=== PATIENT | male | born 1975 | race African-American/Black ===

== ENCOUNTER 2017-03-30 09:45 | Emergency (ER) | payer MEDICAID ==
[~2017-03-30] VITALS: Ht 177.8 cm; Wt 97.0 kg
[2017-03-30 09:46] VITALS: BP 169/100; PULSE 92; RESP 24; TEMP 98.9; O2SAT 99
[2017-03-30] MEDS ORDERED: SODIUM CHLOR 0.9% 1000 ML INJ 1,000 ML IV ONE (11:48)
[2017-03-30 11:53] VITALS: O2SAT 97
[2017-03-30 11:54] VITALS: BP_SYST 140; BP_SYST 153; BP_DIAS 86; BP_DIAS 87; RESP 18
[2017-03-30] MEDS ORDERED: SODIUM CHLORIDE 0.9% FLUSH 10 ML FLUSH IVF PRN (12:00)
[2017-03-30] MEDS ORDERED: MECLIZINE HCL 25 MG TAB PO ONE (12:00)
[2017-03-30] MEDS ORDERED: ONDANSETRON HCL 4 MG/2 ML VIAL IVP ONE (12:00)
[2017-03-30 12:39] LABS: BASOPHIL # 0.1 TH/MM3 (0-0.2); BASOPHIL % 0.4 % (0.0-2.0); EOSINOPHIL % 0.2 % (0.0-4.0); HEMATOCRIT 50.4 % (39.0-51.0); HEMO FLAGS DIFF FINAL; LYMPH % 14.8 % (9.0-44.0); LYMPHOCYTE # 2.1 TH/MM3 (1.0-4.8); MEAN CORPUSCULAR HEMOGLOBIN 33.3 PG (27.0-34.0); MEAN CORPUSCULAR HGB CONC 34.4 % (32.0-36.0); MONO % 6.7 % (0.0-8.0); NEUT % 77.9 % (16.0-70.0); PLATELET COUNT 152 TH/MM3 (150-450); RED CELL DISTRIBUTION WIDTH 13.6 % (11.6-17.2); WHITE BLOOD COUNT 14.1 TH/MM3 (4.0-11.0)
[2017-03-30 12:59] LABS: BICARBONATE 29.2 MEQ/L (21.0-32.0); POTASSIUM 4.2 MEQ/L (3.5-5.1)
[2017-03-30] MEDS ORDERED: LORA-392 PO (13:42)
[2017-03-30] MEDS ORDERED: MECL-62 PO (13:42)
--- NOTE | 2017-03-30 13:42 | RADRPT ---
EXAM DATE/TIME: 03/30/2017 13:07 [facility] COMPARISON: No previous studies available for comparison. INDICATIONS : Dizziness. MEDICAL HISTORY : None. SURGICAL HISTORY : Vasectomy. ENCOUNTER: Initial ACUITY: 1 day PAIN SCORE: 0/10 LOCATION: cranial TECHNIQUE: Multiplanar, multisequence MRI of the brain was performed without contrast. FINDINGS: CEREBRUM: The ventricles are normal for age. No evidence of midline shift, mass lesion, hemorrhage or acute in farction. No extraaxial fluid collections are seen. The pituitary gland and suprasellar cistern are normal in configuration. WHITE MATTER: No significant signal abnormalities are seen in the white matter. POSTERIOR FOSSA: The cerebellum and brainstem are intact. The 4th ventricle is midline. The cerebellopontine angle is unremarkable. The cerebellar tonsils are normal in position. DIFFUSION IMAGING: No focal areas of restricted diffusion are seen. No evidence of acute infarction. EXTRACRANIAL: The visualized portions of the orbits are unremarkable. There are retention cysts in the maxillary si nuses left greater than right. CONCLUSION: 1. No acute hemorrhage, mass or infarction. 2. Retention cysts in the maxillary sinuses. Momo Morris MD on March 30, 2017 at 13:38 Board Certified Radiologist. This report was verified electronically.
--- NOTE | 2017-03-30 13:43 | PD ---
HPI Chief Complaint: Dizziness Time Seen by Provider: 11:40 Travel History International Travel<30 days: No Contact w/Intl Traveler<30days: No Traveled to known affect area: No History of Present Illness HPI The patient is 41 years old. He arrives complaining of dizziness for about 2 days. Sensation is most noticeable on walking and feels as though he might fall the ground. He's had no visual change. There is no lightheadedness on standing. No palpitations. No similar priors episodes. No otalgia or tinnitus or otorrhea. He denies drug abuse. He drinks occasionally. [facility], [facility] Social History Alcohol Use: Yes Tobacco Use: Yes Allergies-Medications (Allergen,Severity, Reaction): Coded Allergies: No Known Allergies (Verified Allergy, Severe, 03/30/17) Reported Meds & Prescriptions Reported Meds & Active Scripts Active Ativan (Lorazepam) 0.5 Mg Tab 0.5 Mg PO Q8H PRN Meclizine (Meclizine HCl) 25 Mg Tab 25 Mg PO DIRECTED PRN Review of Systems Except as stated in HPI: all other systems reviewed are Neg General / Constitutional: No: Fever Physical Exam Narrative GENERAL: 41-year-old male well-nourished well-developed distress SKIN: Warm and dry. HEAD: Atraumatic. Normocephalic. EYES: Pupils equal and round. No scleral icterus. No injection or drainage. No nystagmus. ENT: No nasal bleeding or discharge. Mucous membranes pink and moist. NECK: Trachea midline. No JVD. CARDIOVASCULAR: Regular rate and rhythm. RESPIRATORY: No accessory muscle use. Clear to auscultation. Breath sounds equal bilaterally. GASTROINTESTINAL: Abdomen soft, non-tender, nondistended. Hepatic and splenic margins not palpable. MUSCULOSKELETAL: Extremities without clubbing, cyanosis, or edema. No obvious deformities. NEUROLOGICAL: Rapid alternating movements normal. No dysdiadochokinesia. Heel- to-krueger is normal. Normal ambulation. Cranial nerves III through XII normal. Speech memory mentation normal. PSYCHIATRIC: Appropriate mood and affect; insight and judgment normal. Data Data Last Documented VS Vital Signs Date Time Temp Pulse Resp B/P (MAP) Pulse Ox O2 Delivery O2 Flow Rate FiO2 03/30/17 14:11 03/30/17 11:54 100 18 89 18 03/30/17 11:53 97 Nasal Cannula 2.00 03/30/17 09:46 98.9 Vital signs reviewed Orders Orders Basic Metabolic Panel (Bmp) (03/30/17 11:48) Complete Blood Count With Diff (03/30/17 11:48) Ecg Monitoring (03/30/17 11:48) Iv Access Insert/Monitor (03/30/17 11:48) Oximetry (03/30/17 11:48) Meclizine (Antivert) (03/30/17 12:00) Ondansetron Inj (Zofran Inj) (03/30/17 12:00) Sodium Chloride 0.9% Flush (Ns Flush) (03/30/17 12:00) Sodium Chlor 0.9% 1000 Ml Inj (Ns 1000 M (03/30/17 11:48) Orthostatic Vital Signs (03/30/17 11:48) Mri Brain W/O Contrast (03/30/17 ) Labs Laboratory Tests Test 03/30/17 12:04 White Blood Count 14.1 TH/MM3 Red Blood Count 5.20 MIL/MM3 Hemoglobin 17.3 GM/DL Hematocrit 50.4 % Mean Corpuscular Volume 97.0 FL Mean Corpuscular Hemoglobin 33.3 PG Mean Corpuscular Hemoglobin Concent 34.4 % Red Cell Distribution Width 13.6 % Platelet Count 152 TH/MM3 Mean Platelet Volume 8.7 FL Neutrophils (%) (Auto) 77.9 % Lymphocytes (%) (Auto) 14.8 % Monocytes (%) (Auto) 6.7 % Eosinophils (%) (Auto) 0.2 % Basophils (%) (Auto) 0.4 % Neutrophils # (Auto) 11.0 TH/MM3 Lymphocytes # (Auto) 2.1 TH/MM3 Monocytes # (Auto) 0.9 TH/MM3 Eosinophils # (Auto) 0.0 TH/MM3 Basophils # (Auto) 0.1 TH/MM3 CBC Comment DIFF FINAL Differential Comment Blood Urea Nitrogen 5 MG/DL Creatinine 1.04 MG/DL Random Glucose 93 MG/DL Calcium Level 8.8 MG/DL Sodium Level 138 MEQ/L Potassium Level 4.2 MEQ/L Chloride Level 103 MEQ/L Carbon Dioxide Level 29.2 MEQ/L Anion Gap 6 MEQ/L Estimat Glomerular Filtration Rate 95 ML/MIN MDM Medical Decision Making Medical Screen Exam Complete: Yes Emergency Medical Condition: Yes Medical Record Reviewed: Yes Differential Diagnosis Centralvertigo, peripheral vertigo, electrolyte imbalance, arrhythmia, prerenal azotemia Narrative Course CBC & BMP Diagram 03/30/17 12:04 Calcium Level 8.8 Last 24 hours Impressions Brain MRI 03/30/17 0000 Signed Impressions: Service Date/Time: Thursday, March 30, 2017 13:07 - CONCLUSION: 1. No acute hemorrhage, mass or infarction. 2. Retention cysts in the maxillary sinuses. Momo Morris MD The patient is resting comfortably and feels better, is alert and in no distress. The patients results and examination findings were discussed. The repeat examination is unremarkable and benign. The history, exam, diagnostic testing, and current condition do not suggest any significant pathology to warrant further testing, continued ED treatment, admission, or surgical evaluation at this point. The vital signs have been stable. The patient does not have uncontrollable pain, intractable vomiting, or other significant symptoms. The patient's condition is stable and appropriate for discharge. The patient will pursue further outpatient evaluation with a primary care physician or other designated or consulting physician as indicated in the discharge instructions. The patient expressed understanding and was agreeable with this plan. Diagnosis Primary Impression: Dizziness Additional Impression: Unsteady gait Referrals: Primary Care Physician 2 days Med/Other Pt SpecificInfo: Prescription(s) given Scripts Lorazepam (Ativan) 0.5 Mg Tab 0.5 MG PO Q8H Y for DIZZINESS, #15 TAB 0 Refills Prov: Ben Chang MD 03/30/17 Meclizine (Meclizine) 25 Mg Tab 25 MG PO DIRECTED Y for VERTIGO, #10 TAB 0 Refills Prov: Ben Chang MD 03/30/17 Disposition: 01 DISCHARGE HOME Condition: Stable Ben Chang MD Mar 30, 2017 13:43
== END 2017-03-30 14:13 | disposition home or self-care (01) ==
LOC: NEPD 09:45
DX: R42 Dizziness and giddiness (principal); R26.81 Unsteadiness on feet; Z72.0 Tobacco use
CPT/HCPCS: 70551; 80048; 85025; 96361; 96374; 99285; J2405; J7030

== ENCOUNTER 2017-10-27 15:58 | Emergency (ER) | payer MEDICAID ==
[~2017-10-27] VITALS: Ht 182.9 cm; Wt 109.1 kg
[~2017-10-27 15:58] MED LIST: LORA-392 PO; MECL-62 PO
[2017-10-27 16:06] VITALS: BP 159/94; PULSE 91; RESP 20; TEMP 98.8; O2SAT 98
[2017-10-27 17:23] LABS: AUTOMATED NEUTROPHIL # 7.3 TH/MM3 (1.8-7.7); BASOPHIL % 0.4 % (0.0-2.0); EOSINOPHIL # 0.1 TH/MM3 (0-0.4); EOSINOPHIL % 0.8 % (0.0-4.0); HEMOGLOBIN 18.8 GM/DL (13.0-17.0); LYMPH % 24.5 % (9.0-44.0); LYMPHOCYTE # 2.6 TH/MM3 (1.0-4.8); MEAN CELL VOLUME 96.4 FL (80.0-100.0); MEAN CORPUSCULAR HEMOGLOBIN 34.2 PG (27.0-34.0); MEAN CORPUSCULAR HGB CONC 35.5 % (32.0-36.0); MEAN PLATELET VOLUME 9.2 FL (7.0-11.0); MONO % 5.8 % (0.0-8.0); MONOCYTE # 0.6 TH/MM3 (0-0.9); NEUT % 68.5 % (16.0-70.0); PLATELET COUNT 134 TH/MM3 (150-450); RED CELL DISTRIBUTION WIDTH 13.7 % (11.6-17.2); WHITE BLOOD COUNT 10.7 TH/MM3 (4.0-11.0)
[2017-10-27 17:30] LABS: INTERNATIONAL NORMALIZED RATIO 1.1 RATIO; PROTHROMBIN TIME - PATIENT 10.7 SEC (9.8-11.6)
[2017-10-27 17:38] LABS: ALKALINE PHOSPHATASE 85 U/L (45-117); ALT (GPT) 38 U/L (12-78); TOTAL BILIRUBIN ADULT 0.5 MG/DL (0.2-1.0)
[2017-10-27 17:39] LABS: BACTERIA, URINE MOD /hpf; BILIRUBIN, URINE NEG (NEG); BLOOD, URINE TRACE (NEG); GLUCOSE,URINE NEG (NEG); HYALINE CAST, URINE 3 /lpf (RARE); KETONE, URINE 10 mg/dL (NEG); MUCUS URINE FEW /lpf (OCC); NITRITE,URINE NEG (NEG); PH, URINE 5.5 (5.0-8.5); URINE COLOR YELLOW (YELLW/STRAW); URINE LEUKOCYTE ESTERASE MOD (NEG)
[2017-10-27 17:59] LABS: AST (GOT) 33 U/L (15-37); BICARBONATE 26.9 MEQ/L (21.0-32.0); BLOOD UREA NITROGEN 9 MG/DL (7-18); CALCIUM 9.1 MG/DL (8.5-10.1); CHLORIDE 103 MEQ/L (98-107); CREATININE 1.14 MG/DL (0.60-1.30); GLOMERULAR FILTRATION RATE 85 ML/MIN (>89); GLUCOSE,RANDOM 93 MG/DL (74-106); SODIUM (NA) 140 MEQ/L (136-145)
--- NOTE | 2017-10-27 18:30 | PD ---
HPI Chief Complaint: GI Complaint Time Seen by Provider: 18:06 Travel History International Travel<30 days: No Contact w/Intl Traveler<30days: No Traveled to known affect area: No History of Present Illness HPI 41-year-old male presents emergency department for evaluation of abdominal discomfort and gas pains. Patient states he is actually started about 4 days ago he was at work and had sudden onset abdominal cramping and his significant other states that he was sweating bullets and looking like he was going to pass out at that time. Is been intermittent throughout the weekend and then on today he decided to come in and be seen. States his symptoms are fairly mild currently, he has not had any nausea nor vomiting nor diarrhea no constipation. He states his pains never happened to him before, denies any other symptoms denies any chest pain shortness breath cough congestion or fever. No surgeries in the past PFSH Past Medical History Medical History: Denies Significant Hx Past Surgical History Genitourinary Surgery: Yes Social History Alcohol Use: Yes Tobacco Use: Yes Substance Use: No Allergies-Medications (Allergen,Severity, Reaction): Coded Allergies: No Known Allergies (Verified , 10/27/17) Reported Meds & Prescriptions Reported Meds & Active Scripts Active Flagyl (Metronidazole) 500 Mg Tab 500 Mg PO BID 7 Days Ciprofloxacin (Ciprofloxacin HCl) 500 Mg Tab 500 Mg PO BID 7 Days Zofran (Ondansetron HCl) 4 Mg Tab 4 Mg PO Q6HR PRN Bentyl (Dicyclomine HCl) 10 Mg Cap 10 Mg PO TID PRN Review of Systems Except as stated in HPI: all other systems reviewed are Neg Physical Exam Narrative GENERAL: Well-developed well-nourished no obvious distress SKIN: Focused skin assessment warm/dry. HEAD: Atraumatic. Normocephalic. EYES: Pupils equal and round. No scleral icterus. No injection or drainage. ENT: No nasal bleeding or discharge. Mucous membranes pink and moist. NECK: Trachea midline. No JVD. CARDIOVASCULAR: Regular rate and rhythm. No murmur appreciated. RESPIRATORY: No accessory muscle use. Clear to auscultation. Breath sounds equal bilaterally. GASTROINTESTINAL: Abdomen soft, non-tender, nondistended. Hepatic and splenic margins not palpable. No rebound no percussive tenderness, no CVA tenderness, normal active bowel sounds MUSCULOSKELETAL: No obvious deformities. No clubbing. No cyanosis. No edema. NEUROLOGICAL: Awake and alert. No obvious cranial nerve deficits. Motor grossly within normal limits. Normal speech. PSYCHIATRIC: Appropriate mood and affect; insight and judgment normal. Data Data Last Documented VS Vital Signs Date Time Temp Pulse Resp B/P (MAP) Pulse Ox O2 Delivery O2 Flow Rate FiO2 10/27/17 20:38 66 20 139/96 (110) 100 10/27/17 19:59 Room Air 10/27/17 16:06 98.8 Orders Orders Comprehensive Metabolic Panel (10/27/17 16:08) Complete Blood Count With Diff (10/27/17 16:08) Lipase (10/27/17 16:08) Prothrombin Time / Inr (Pt) (10/27/17 16:08) Act Partial Throm Time (Ptt) (10/27/17 16:08) Urinalysis - C+S If Indicated (10/27/17 16:08) Urine Culture (10/27/17 16:45) Ct Abd/Pel W Iv Contrast(Rout) (10/27/17 ) Iohexol 350 Inj (Omnipaque 350 Inj) (10/27/17 19:41) Ed Discharge Order (10/27/17 20:17) Labs Laboratory Tests Test 10/27/17 16:40 10/27/17 16:45 White Blood Count 10.7 TH/MM3 Red Blood Count 5.50 MIL/MM3 Hemoglobin 18.8 GM/DL Hematocrit 53.0 % Mean Corpuscular Volume 96.4 FL Mean Corpuscular Hemoglobin 34.2 PG Mean Corpuscular Hemoglobin Concent 35.5 % Red Cell Distribution Width 13.7 % Platelet Count 134 TH/MM3 Mean Platelet Volume 9.2 FL Neutrophils (%) (Auto) 68.5 % Lymphocytes (%) (Auto) 24.5 % Monocytes (%) (Auto) 5.8 % Eosinophils (%) (Auto) 0.8 % Basophils (%) (Auto) 0.4 % Neutrophils # (Auto) 7.3 TH/MM3 Lymphocytes # (Auto) 2.6 TH/MM3 Monocytes # (Auto) 0.6 TH/MM3 Eosinophils # (Auto) 0.1 TH/MM3 Basophils # (Auto) 0.0 TH/MM3 CBC Comment DIFF FINAL Differential Comment Prothrombin Time 10.7 SEC Prothromb Time International Ratio 1.1 RATIO Activated Partial Thromboplast Time 28.9 SEC Blood Urea Nitrogen 9 MG/DL Creatinine 1.14 MG/DL Random Glucose 93 MG/DL Total Protein 8.0 GM/DL Albumin 4.0 GM/DL Calcium Level 9.1 MG/DL Alkaline Phosphatase 85 U/L Aspartate Amino Transf (AST/SGOT) 33 U/L Alanine Aminotransferase (ALT/SGPT) 38 U/L Total Bilirubin 0.5 MG/DL Sodium Level 140 MEQ/L Potassium Level 3.8 MEQ/L Chloride Level 103 MEQ/L Carbon Dioxide Level 26.9 MEQ/L Anion Gap 10 MEQ/L Estimat Glomerular Filtration Rate 85 ML/MIN Lipase 97 U/L Urine Color YELLOW Urine Turbidity CLEAR Urine pH 5.5 Urine Specific [place] 1.016 Urine Protein NEG mg/dL Urine Glucose (UA) NEG mg/dL Urine Ketones 10 mg/dL Urine Occult Blood TRACE Urine Nitrite NEG Urine Bilirubin NEG Urine Urobilinogen LESS THAN 2.0 MG/DL Urine Leukocyte Esterase MOD Urine RBC 5 /hpf Urine WBC 26 /hpf Urine Bacteria MOD /hpf Urine Hyaline Casts 3 /lpf Urine Mucus FEW /lpf Microscopic Urinalysis Comment CULTURE INDICATED MDM Medical Decision Making Medical Screen Exam Complete: Yes Emergency Medical Condition: Yes Differential Diagnosis Gastritis, gastroenteritis, cholecystitis, colitis, electrolyte abnormality, acute abdomen highly unlikely per Narrative Course Patient room to the emergency department, abdomen fairly benign but the patient' s significant other is significantly worried that something severe is going with the patient. I have offered a CAT scan after discussing the risks of radiation exposure with them and he is agreeable. Lab work was reassuring. Last 24 hours Impressions Abdomen/Pelvis CT 10/27/17 0000 Signed Impressions: Service Date/Time: Friday, October 27, 2017 19:40 - CONCLUSION: Mild left- sided colitis, most likely infectious or inflammatory. When clinically feasible, colonoscopy is recommended to confirm no underlying mass lesion. No obstruction , abscess or free air. Raffaele Andrea MD Discussed results with the patient recommended empiric antibiotics symptomatic management push p.o. hydration and bland diet. 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 Discussed return to ED criteria Diagnosis Primary Impression: Colitis Referrals: Rod Reynoso MD Med/Other Pt SpecificInfo: Prescription(s) given Scripts Metronidazole (Flagyl) 500 Mg Tab 500 MG PO BID for Infection for 7 Days, #14 TAB 0 Refills Prov: Clarence Gutierrez MD 10/27/17 Ciprofloxacin (Ciprofloxacin) 500 Mg Tab 500 MG PO BID for Infection for 7 Days, #14 TAB 0 Refills Prov: Clarence Gutierrez MD 10/27/17 Ondansetron (Zofran) 4 Mg Tab 4 MG PO Q6HR Y for NAUSEA OR VOMITING, #20 TAB 0 Refills Prov: Clarence Gutierrez MD 10/27/17 Dicyclomine (Bentyl) 10 Mg Cap 10 MG PO TID Y for Bowel Management, #20 CAP 0 Refills Prov: Clarence Gutierrez MD 10/27/17 Disposition: 01 DISCHARGE HOME Condition: Stable Clarence Gutierrez MD Oct 27, 2017 18:30
[2017-10-27] MEDS ORDERED: IOHEXOL 350 MG/ML 10 ML VIAL (for RAD DIAG) IVCONTRAST ONE (19:41)
--- NOTE | 2017-10-27 19:58 | RADRPT ---
EXAM DATE/TIME: 10/27/2017 19:40 [facility] COMPARISON: No previous studies available for comparison. INDICATIONS : Diffuse abdomen pain for five days. IV CONTRAST: 81 cc Omnipaque 350 (iohexol) IV ORAL CONTRAST: No oral contrast ingested. RADIATION DOSE: 9.83 CTDIvol (mGy) MEDICAL HISTORY : None SURGICAL HISTORY : None. ENCOUNTER: Initial ACUITY: 4 - 6 days PAIN SCALE: 6/10 LOCATION: Bilateral abdomen TECHNIQUE: Volumetric scanning of the abdomen and pelvis was performed. Using automated exposure control and ad justment of the mA and/or kV according to patient size, radiation dose was kept as low as reasonably achievable to obtain optimal diagnostic quality images. DICOM format image data is available electro nically for review and comparison. FINDINGS: LOWER LUNGS: The visualized lower lungs are clear. LIVER: Homogeneous density without lesion. There is no dilation of the biliary tree. No calcified gallston es. SPLEEN: Normal size without lesion. PANCREAS: Within normal limits. KIDNEYS: Normal in size and shape. There is no mass, stone or hydronephrosis. ADRENAL GLANDS: Within normal limits. VASCULAR: There is no aortic aneurysm. BOWEL/MESENTERY: There is mild thickening of the left side of the colon, especially in the region of the proximal sigm oid colon. The rectum is also involved. There is an abrupt termination of the wall thickening at the level of the mid sigmoid colon, for example series 601 image 42. An underlying mass lesion is not exc ludable. The rest of the bowel appears normal. The appendix is normal. No obstruction. There is no fr ee fluid or free air. ABDOMINAL WALL: Within normal limits. RETROPERITONEUM: There is no lymphadenopathy. BLADDER: No wall thickening or mass. REPRODUCTIVE: Within normal limits. INGUINAL: There is no lymphadenopathy or hernia. MUSCULOSKELETAL: Within normal limits for patient age. CONCLUSION: Mild left-sided colitis, most likely infectious or inflammatory. When clinically feasible, colonoscop y is recommended to confirm no underlying mass lesion. No obstruction, abscess or free air. Raffaele Andrea MD on October 27, 2017 at 19:52 Board Certified Radiologist. This report was verified electronically.
[2017-10-27 19:59] VITALS: BP 135/91; PULSE 79; RESP 20; O2SAT 98
[2017-10-27] MEDS ORDERED: DICY10 PO (20:17)
[2017-10-27] MEDS ORDERED: CIPR500T2 PO (20:17)
[2017-10-27] MEDS ORDERED: ZOFR4TAB PO (20:17)
[2017-10-27] MEDS ORDERED: METR-1 PO (20:17)
[2017-10-27 20:38] VITALS: BP 139/96
== END 2017-10-27 20:42 | disposition home or self-care (01) ==
LOC: NEPD 15:58
DX: K52.9 Noninfective gastroenteritis and colitis, unspecified (principal); R82.99 Other abnormal findings in urine; B96.1 Klebsiella pneumoniae [K. pneumoniae] as the cause of diseases classified elsewhere; Z72.0 Tobacco use
CPT/HCPCS: 74177; 80053; 81001; 83690; 85025; 85610; 85730; 87077; 87086; 87186; 99284; Q9967